=== PATIENT | female | born 1970 | race African-American/Black ===

== ENCOUNTER 2021-02-11 11:51 | Day surgery (SDC) | payer BC ==
[2021-02-08 16:42] VITALS: BMI 31.6
[~2021-02-11 11:51] MED LIST: CEFAZOLIN 1 GM/D5W 1 GM/50 ML BAG IVPB ONE; LACTATED RINGERS SOLUTION 1,000 ML IV SCH; ONDANSETRON 4 MG/2 ML VIAL IVPUSH PRN; PROMETHAZINE HCL 25 MG/1 ML VIAL IVPUSH PRN; oxyCODONE HCL 5 MG TABLET PO PRN
[2021-02-11] MEDS ORDERED: MIDAZOLAM HCL 2 MG/2 ML SINGLE DOSE VIAL ONE (13:05)
[2021-02-11] MEDS ORDERED: PROPOFOL 20 ML ONE ×2 (13:05→13:45)
[2021-02-11] MEDS ORDERED: ceFAZolin SODIUM 1 GM VIAL ONE (13:07)
[2021-02-11] MEDS ORDERED: SODIUM CHLORIDE 0.9% P/F 10 ML VIAL IJ ONE (13:07)
[2021-02-11] MEDS ORDERED: LIDOCAINE HCL/PF 2% SDV 5ML VIAL ONE (13:07)
[2021-02-11] MEDS ORDERED: LIDOCAINE HCL 2% (20ML MULTI-DOSE VIAL) ONE ×2 (13:18→13:25)
[2021-02-11] MEDS ORDERED: DEXAMETHASONE SOD PHOSPHATE 4 MG/1 ML VIAL ONE ×2 (13:19→13:48)
[2021-02-11] MEDS ORDERED: ONDANSETRON 4 MG/2 ML VIAL ONE (13:48)
[2021-02-11] MEDS ORDERED: LIDOCAINE HCL 2% (50ML VIAL) PNB ONE (14:00)
[2021-02-11 17:22] VITALS: TEMP 97.1
[2021-02-11 17:28] VITALS: BP 111/70; PULSE 72
== END 2021-02-11 16:30 | disposition home or self-care (01) ==
LOC: FASU 11:51
PROVIDERS: ATTEND Podiatrist
PROC: 0QBR0ZZ Excision of Left Toe Phalanx, Open Approach (ICD-10-PCS; 2021-02-11)
PROC: 0SRP0JZ Replacement of Right Toe Phalangeal Joint with Synthetic Substitute, Open Approach (ICD-10-PCS; principal; 2021-02-11 13:00)
DX: M20.41 Other hammer toe(s) (acquired), right foot (principal)
CPT/HCPCS: 88304-TC; 88311-TC